=== PATIENT | female | born 1955 | race Caucasian/White ===

== ENCOUNTER 2021-08-13 11:46 | Emergency (ER) | payer BC, MEDICAID ==
[~2021-08-13] VITALS: Ht 165.1 cm; Wt 106.8 kg
[2021-08-13 15:12] VITALS: BP 201/95
--- NOTE | 2021-08-13 16:01 | NUR ---
THIS RN ACCOMPANING PA TO PT ROOM FOR DC PA EXPLAINED TO PT THAT HOSPITAL DOES NOT PERFORM BREAST ULTRA SOUNDS WITHOUT A MAMMOGRAM SO PT WOULD BE REFERRED TO OUT PT FOR FOLLOW UP. PT BEGAN RIPPING OFF GOWN AND VITALS EQUIPMENT VISUALLY UPSET STATES "YOU KATHY'S HAVENT DONE ANYTHING FOR ME AND MY TIT STILL HURTS" EXPLAINED TO PT THAT THIS IS AN EMERGENCY ROOM AND WE ARE ONLY ABLE TO TREAT CERTAIN CONDITIONS. PT STATES "WHAT IF THIS IS CANCER" EXPLAINED TO PT THAT WE ARE UNABLE TO TREAT CANCER IN AN EMERGENCY DEPARTMENT SO SHE WOULD NEED A FOLLOW UP AND PCP. PT CONTINUES TO BE VERBALLY AGGRESSIVE TOWARD STAFF. WALKED PT TO EXIT OF ER PT STATES "FUCK YOU" WHILE LEAVING ER EXIT GAIT STEADY DC PAPERWORK IN HAND WITH FOLLOW UP REFFERAL.
== END 2021-08-13 16:08 | disposition home or self-care (01) ==
LOC: ER 11:47
DX: N63.20 Unspecified lump in the left breast, unspecified quadrant (principal); N64.4 Mastodynia; I10 Essential (primary) hypertension; J44.9 Chronic obstructive pulmonary disease, unspecified; E03.9 Hypothyroidism, unspecified; F41.9 Anxiety disorder, unspecified; F32.A Depression, unspecified; F17.200 Nicotine dependence, unspecified, uncomplicated; F12.90 Cannabis use, unspecified, uncomplicated; Z86.73 Personal history of transient ischemic attack (TIA), and cerebral infarction without residual deficits; Z88.1 Allergy status to other antibiotic agents; Z88.8 Allergy status to other drugs, medicaments and biological substances
CPT/HCPCS: 99284

== ENCOUNTER 2022-09-10 12:02 | Outpatient (CLI) | payer BC, MEDICAID | END 2022-09-10 23:59 | disposition home or self-care (01) | LOC: LAB SPEC 12:02 | PROVIDERS: ATTEND Surgery | DX: G11.0 Congenital nonprogressive ataxia (principal) | CPT/HCPCS: 87070 ==

== ENCOUNTER 2022-10-29 11:53 | Emergency (ER) | payer BC, MEDICAID ==
[~2022-10-29] VITALS: Ht 165.1 cm; Wt 97.7 kg
[~2022-10-29 11:53] MED LIST: AMLO10TA13 PO; CARV25TA2 PO; CHOL500049 PO; CYCL-1 PO; DULA3PEN SQ; FERR325T28 PO; FLUT12AE2 PO; GABA-534 PO; LEVO25TA7 PO; LOSA100T58 PO; ROSU40TA22 PO; SERT-434 PO; TOP100T PO; VITAMIN B-12
[2022-10-29 12:03] VITALS: BP 189/81
--- NOTE | 2022-10-29 12:15 | NUR ---
PATIENT STATES THAT SHE LAST TOOK HER HTN MEDICATIONS A FEW DAYS AGO.
[2022-10-29] MEDS ORDERED: LEVO25TA7 PO (13:05)
[2022-10-29] MEDS ORDERED: CARV25TA2 PO (13:05)
[2022-10-29] MEDS ORDERED: GABA-534 PO (13:05)
[2022-10-29] MEDS ORDERED: SERT-434 PO (13:05)
[2022-10-29] MEDS ORDERED: TOP100T PO (13:05)
[2022-10-29] MEDS ORDERED: CYCL-1 PO (13:05)
== END 2022-10-29 13:14 | disposition home or self-care (01) ==
LOC: ER 11:53
DX: F32.A Depression, unspecified (principal); F29 Unspecified psychosis not due to a substance or known physiological condition; Z76.0 Encounter for issue of repeat prescription; Z88.1 Allergy status to other antibiotic agents; Z88.8 Allergy status to other drugs, medicaments and biological substances; Z79.899 Other long term (current) drug therapy; Z79.1 Long term (current) use of non-steroidal anti-inflammatories (NSAID)
CPT/HCPCS: 99284

== ENCOUNTER 2022-11-01 08:19 | Day surgery (SDC) | payer BC, MEDICAID ==
[2022-10-27 10:39] LABS: BASOPHILS # (AUTO) 0.1 X10'3 (0-0.2); BASOPHILS % (AUTO) 1.4 % (0-1); EOSINOPHILS # (AUTO) 0.6 X10'3 (0-0.9); EOSINOPHILS % (AUTO) 9.4 % (0-6); LYMPHOCYTES # (AUTO) 1.3 X10'3 (1.1-4.8); LYMPHOCYTES % (AUTO) 20.1 % (21-51); MEAN CORPUSCULAR HEMOGLOBIN 26.5 PG (27.0-31.0); MEAN CORPUSCULAR HGB CONC 31.8 g/dL (33.0-36.5); MEAN CORPUSCULAR VOLUME 83.1 FL (78-98); MEAN PLATELET VOLUME 8.9 FL (7.4-10.4); MONOCYTES # (AUTO) 0.5 X10'3 (0-0.9); MONOCYTES % (AUTO) 7.6 % (2-12); NEUTROPHILS # (AUTO) 4.1 X10'3 (1.8-7.7); NEUTROPHILS % (AUTO) 61.5 % (42-75); PRE OP HEMATOCRIT 35.7 % (35.0-45.0); PRE OP HEMOGLOBIN 11.4 g/dL (12.0-16.0); PRE OP PLATELET COUNT 170 X10'3 (140-440); RED CELL DISTRIBUTION WIDTH 18.1 % (11.5-14.5)
[2022-10-27 10:43] LABS: PRE OP PROTIME 10.3 SECONDS (9.0-12.0)
[2022-10-27 10:47] LABS: ALBUMIN 3.9 G/DL (3.4-5.0); ALKALINE PHOSPHATASE 102 IU/L (46-116); BLOOD UREA NITROGEN 11 MG/DL (7-18); CALCIUM 9.1 MG/DL (8.5-10.1); CHLORIDE 106 MMOL/L (99-107); PRE OP ALT 16 U/L (30-65); PRE OP ANION GAP 12 (8-16); PRE OP AST 21 U/L (10-37); PRE OP BILIRUB, TOTAL 0.3 MG/DL (0.0-1.0); PRE OP GLUCOSE 75 MG/DL (70-104); PRE OP POTASSIUM 3.8 MMOL/L (3.4-5.1); PRE OP SODIUM 143 MMOL/L (135-145); TOTAL CARBON DIOXIDE 25.1 MMOL/L (24-32); TOTAL PROTEIN 7.7 G/DL (6.4-8.2); eGFR 55 ML/MIN
[~2022-11-01] VITALS: Ht 165.1 cm; Wt 96.1 kg
[~2022-11-01 08:19] MED LIST changes: +DOCUMENT DATE & TIME OF BETA-BLOCKER PO ONE; +albuterol 2.5 MG/3 ML nebule NEB ONE; +famotidine 20mg tablet PO ONE; +levoFLOXACIN-Levaquin 500mg/D5 100 ML IV ONE; +ringers solution, lacted 1,000 ML IV SCH
[2022-11-01 08:40] VITALS: BP 143/61
[2022-11-01] MEDS ORDERED: ondansetron/PF 4mg/2ml inj IV PRN (09:20)
[2022-11-01] MEDS ORDERED: morphine 2 MG/ML inj. syringe IV PRN (09:20)
[2022-11-01] MEDS ORDERED: ringers solution, lacted 1,000 ML IV SCH (09:20)
[2022-11-01] MEDS ORDERED: proCHLORperazine 10 MG/2 ml inj IV PRN (09:20)
[2022-11-01] MEDS ORDERED: meperidine/PF 25mg/ml syringe IV PRN ×3 (09:20)
[2022-11-01] MEDS ORDERED: morphine 4 MG/ML inj SYRINge IV PRN (09:20)
[2022-11-01] MEDS ORDERED: midazolam 1 mg/ML 2ml injection ONE (09:43)
[2022-11-01] MEDS ORDERED: fentaNYL /PF 50mcg/ml 5ml ampule ONE (09:44)
[2022-11-01] MEDS ORDERED: LIDOcaine 2% (20mg/ml) 5ml vial ONE ×2 (09:44→09:52)
[2022-11-01] MEDS ORDERED: propofol inj 20 ML IV ONE (09:44)
[2022-11-01] MEDS ORDERED: BUPIVAcaine/PF 2.5 mg/ml (0.25%) 30ml vial ONE (10:02)
[2022-11-01] MEDS ORDERED: dexamethasone sod phosphate 10mg/ml inj ONE (10:10)
[2022-11-01] MEDS ORDERED: sevoflurane 250ml liquid IH ONE (10:10)
[2022-11-01] MEDS ORDERED: ondansetron/PF 4mg/2ml inj ONE (11:07)
[2022-11-01] MEDS ORDERED: acetaminophen 1,000mg/100ml IV 100 ML IV ONE (11:19)
[2022-11-01 11:28] VITALS: BP 172/73
--- NOTE | 2022-11-01 11:28 | NUR ---
Received from OR via [facility] IN STABLE CONDITION , accompanied by Anesthesiologist and ARCHEOLOGIST report given by ARCHEOLOGIST AND Anesthesiolgist. Addendum: 11/01/22 at 1357 by Rashida Kemp RN Amended: Links added.
[2022-11-01 11:40] VITALS: BP 132/75
[2022-11-01 11:50] VITALS: BP 124/84
[2022-11-01 12:00] VITALS: BP 131/78
--- NOTE | 2022-11-01 12:08 | NUR ---
DC HOME: ALL DISCHARGE CRITERIA HAS BEEN MET. VSS, PAIN AT A TOLERABLE LEVEL, VOIDING AND ABLE TO SAFELY AMBULATE AND TRANSFER SELF. IV TAKEN OUT WITHOUT ANY COMPLICATIONS. ALL DISCHARGE INSTRUCTIONS COVERED WITH PATIENT AND ALL QUESTIONS ANSWERED. PATIENT TAKEN OUT VIA WHEELCHAIR TO PERSONAL VEHICLE WHERE FAMILY/FRIEND DROVE PATIENT HOME. Addendum: 11/01/22 at 1405 by Rashida Kemp RN Amended: Links added.
== END 2022-11-01 12:08 | disposition home or self-care (01) ==
LOC: PAS 08:19
PROVIDERS: ATTEND Surgery
DX: N61.1 Abscess of the breast and nipple (principal); N60.12 Diffuse cystic mastopathy of left breast; I10 Essential (primary) hypertension; J44.9 Chronic obstructive pulmonary disease, unspecified; B19.20 Unspecified viral hepatitis C without hepatic coma; K21.9 Gastro-esophageal reflux disease without esophagitis; E03.9 Hypothyroidism, unspecified; M19.90 Unspecified osteoarthritis, unspecified site; E66.9 Obesity, unspecified; Z68.35 Body mass index [BMI] 35.0-35.9, adult; F17.210 Nicotine dependence, cigarettes, uncomplicated; F12.90 Cannabis use, unspecified, uncomplicated; Z88.1 Allergy status to other antibiotic agents; Z88.8 Allergy status to other drugs, medicaments and biological substances; Z79.899 Other long term (current) drug therapy; Z86.73 Personal history of transient ischemic attack (TIA), and cerebral infarction without residual deficits
CPT/HCPCS: 19301; 36415; 80053; 82948; 85025; 85610; 85730; 93005; 94640; J0131; J1100; J1956; J2250; J2405; J2704; J3010; J3490; J7030; J7120; Z7506; Z7508; Z7512; A4215; A4618; A6449; A7000